=== PATIENT | male | born 1950 | race Hispanic/Latino ===

== ENCOUNTER 2022-01-13 05:52 | Observation (INO) | payer MEDICARE ==
[2022-01-11 10:13] LABS: BASOPHILS % 0.7 % (0.0-1.0); EOSINOPHILS # (AUTO) 0.5 (0.0-0.4); EOSINOPHILS % 8.2 % (0.0-6.0); HEMATOCRIT 41.7 % (38.2-49.6); HEMOGLOBIN 14.1 g/dL (14.0-18.0); LYMPHOCYTES # (AUTO) 0.9 (1.0-3.2); LYMPHOCYTES % 15.5 % (18.0-39.1); MEAN CORPUSCULAR HEMOGLOBIN 31.3 pg (28-32); MEAN CORPUSCULAR HGB CONC 33.8 g/dL (31-35); MEAN CORPUSCULAR VOLUME 92.5 fL (81-99); MONOCYTES # (AUTO) 0.6 (0.2-0.8); MONOCYTES % 10.5 % (4.4-11.3); NEUTROPHILS # (AUTO) 3.6 (2.1-6.9); NEUTROPHILS % 64.9 % (38.7-80.0); PLATELET COUNT 255 x10e3/uL (140-360); RED BLOOD COUNT 4.51 x10e6/uL (4.3-5.7); RED CELL DISTRIBUTION WIDTH 14.9 % (11.7-14.4)
[2022-01-11 10:34] LABS: INR 0.92; PARTIAL THROMBOPLASTIN TIME 30.8 seconds (23.8-35.5); PROTHROMBIN TIME 13.2 seconds (11.9-14.5)
[2022-01-11 10:39] LABS: ANION GAP 10.8 mmol/L (8-16); CALCIUM 8.9 mg/dL (8.4-10.2); CREATININE, SERUM 0.8 mg/dL (0.72-1.25); POTASSIUM 3.8 mmol/L (3.5-5.1)
[~2022-01-13] VITALS: Ht 180.3 cm; Wt 88.5 kg
[~2022-01-13 05:52] MED LIST: AMLODIPINE BESYL5 MG PO; ASPIRIN81 MG PO; FLOMAX0.4 MG PO; LIPITOR10 MG PO; LOSARTAN-HCTZ1 EAC1 PO; METOPROLOL SUCC50 MG PO; OMEGA 3 FISH O1 EACH PO; OSTEO BI-FLEX1 EAC2 PO; TADALAFIL5 MG PO; TUMERIC PO; ULTRAM 50MG50 MG PO; VITAMIN B COMP1 EACH PO; VITAMIN C1000 MG PO
[2022-01-13] MEDS ORDERED: Vancomycin IV 1 GM VIAL ONE (06:36)
[2022-01-13] MEDS ORDERED: THROMBIN FOR SOLN 5,000 UNIT VIAL ONE (06:36)
[2022-01-13] MEDS ORDERED: LIDOCAINE 2% /EPINEPHRINE 20 ML SDV INJ ONE (07:08)
[2022-01-13] MEDS: LACTATED RINGER'S 1,000 ML IV SCH ×2 (09:30→17:43)
[2022-01-13] MEDS ORDERED: ZOLPIDEM TARTRATE 5 MG TAB PO PRN (09:30)
[2022-01-13] MEDS ORDERED: ACETAMINOPHEN 325 MG TAB PO PRN (09:30)
[2022-01-13] MEDS ORDERED: MAGNESIUM/ALUMINUM/SIMETHICONE 30 ML UDC PO PRN (09:30)
[2022-01-13] MEDS ORDERED: Morphine 10mg syringe 10 MG/ML INJ IM PRN (09:30)
[2022-01-13] MEDS ORDERED: HYDROMORPHONE 2MG/ML 2 MG/ML ML IV PRN (09:30)
[2022-01-13] MEDS ORDERED: TRAMADOL HCL 50 MG TAB PO SCH (09:30)
[2022-01-13] MEDS ORDERED: HYDROCODON-ACE1 EA12 PO (09:30)
[2022-01-13] MEDS ORDERED: PROMETHAZINE HCL (IM) 25 MG/ML VIAL IM PRN (09:30)
[2022-01-13] MEDS ORDERED: ONDANSETRON HCL INJ 2MG/ML 2ML 2 MG/ML VIAL IV PRN (09:30)
[2022-01-13] MEDS ORDERED: CARISOPRODOL 350 MG TAB PO PRN (09:30)
[2022-01-13] MEDS ORDERED: ROCURONIUM BROMIDE 10 MG/ML 5ML VIAL IV ONE (13:02)
[2022-01-13] MEDS ORDERED: DEXAMETHASONE SOD PHOS INJ 4 MG/ML SDV ONE (13:02)
[2022-01-13] MEDS ORDERED: SUGAMMADEX SODIUM 200 MG/2 ML VIAL IV ONE (13:02)
[2022-01-13] MEDS ORDERED: POVIDONE IODINE 0.05% 0.05 % ML PO ONE (13:02)
[2022-01-13] MEDS ORDERED: ONDANSETRON HCL INJ 2MG/ML 2ML 2 MG/ML VIAL ONE (13:02)
[2022-01-13] MEDS ORDERED: IBUPROFEN 800 MG/200 ML BAG IV ONE (13:02)
[2022-01-13] MEDS ORDERED: LIDOCAINE HCL 2% LOCAL INJ 5 ML SDV VIAL INJ ONE (13:02)
[2022-01-13] MEDS ORDERED: ACETAMINOPHEN 1000 MG/100 ML IV ONE (13:02)
[2022-01-13] MEDS ORDERED: SEVOFLURANE INHAL SOLN 250 ML PEN BTL ONE (13:02)
[2022-01-13] MEDS ORDERED: PROPOFOL IV EMULSION 10 MG/ML 20 ML VIAL ONE (13:02)
[2022-01-13] MEDS ORDERED: EPHEDRINE SULFATE INJ 50 MG/ML VIAL ONE (13:02)
[2022-01-13] MEDS ORDERED: MIDAZOLAM HCL 2 MG/2 ML VIAL ONE (14:00)
[2022-01-13] MEDS ORDERED: FENTANYL CITRATE/PF 100MCG/2 ML INJ ONE (14:00)
[2022-01-13] MEDS: OXYCODONE/ACETAMINOPHEN 5-325 1 EACH TABLET PO PRN ×2 (15:18→19:22)
[2022-01-13 15:42] VITALS: BP 136/87
[2022-01-13 16:38] VITALS: BP 136/81
[2022-01-13 20:00] VITALS: BP 145/86
[2022-01-13 20:01] VITALS: BP 136/81
[2022-01-13] MEDS ORDERED: ATORVASTATIN 20 MG TAB PO SCH (21:00)
[2022-01-13 23:57] VITALS: BP 135/86
[2022-01-14] MEDS: LACTATED RINGER'S 1,000 ML IV SCH (02:10)
[2022-01-14 04:12] VITALS: BP 118/73
[2022-01-14] MEDS: OXYCODONE/ACETAMINOPHEN 5-325 1 EACH TABLET PO PRN (06:30)
[2022-01-14 07:54] VITALS: BP 126/76
[2022-01-14 07:57] VITALS: BP 126/76
[2022-01-14] MEDS ORDERED: METOPROLOL SUCCINATE 50 MG TAB XL PO SCH (09:00)
[2022-01-14] MEDS ORDERED: ASCORBIC ACID 500 MG TAB PO SCH (09:00)
[2022-01-14] MEDS ORDERED: HYDROCHLOROTHIAZIDE 25 MG TAB PO SCH (09:00)
[2022-01-14] MEDS ORDERED: TAMSULOSIN HCL 0.4 MG CAP PO SCH (09:00)
[2022-01-14] MEDS ORDERED: AMLODIPINE BESYLATE 5 MG TAB PO SCH (09:00)
[2022-01-14] MEDS ORDERED: LOSARTAN POTASSIUM 100 MG TAB PO SCH (09:00)
== END 2022-01-14 10:41 | disposition home or self-care (01) ==
LOC: OR 05:52 → PACU V 09:27 → MED/SURG3 14:48
PROVIDERS: ADMIT Neurological Surgery; ATTEND Neurological Surgery
DX: M48.062 Spinal stenosis, lumbar region with neurogenic claudication (principal); I10 Essential (primary) hypertension; E78.5 Hyperlipidemia, unspecified; M19.90 Unspecified osteoarthritis, unspecified site; Z01.810 Encounter for preprocedural cardiovascular examination; Z01.812 Encounter for preprocedural laboratory examination; Z01.818 Encounter for other preprocedural examination
CPT/HCPCS: 36415; 63047; 63048; 71046; 72020; 80048; 85025; 85610; 85730; 86850; 86900; 88304; 88311; 93005; G0378 ×2; J0131; J0690 ×2; J1100; J1170; J2001 ×2; J2250; J2405; J2704; J3010; J3370; J7121

== ENCOUNTER → 2023-04-20 | Outpatient (REF) | payer MEDICARE ==
[~2023-04-20] MED LIST changes: +HYDROCODON-ACE1 EA12 PO; +IOPAMIDOL 370 MG/ML 100 ML INFUS..BTL INJ ONE; +SODIUM CHLORIDE 0.9% 100 ML ONE
[2023-04-20 13:47] LABS: CREATININE, SERUM 0.88 mg/dL (0.72-1.25)
== END ==
LOC: CT 12:51
PROVIDERS: ATTEND Internal Medicine Cardiovascular Disease
DX: I71.21 Aneurysm of the ascending aorta, without rupture (principal)
CPT/HCPCS: 36415; 71275; 82565; 84520; J7050; Q9967

== ENCOUNTER → 2024-05-06 | Outpatient (REF) | payer MEDICARE ==
[2024-05-06 12:09] LABS: CREATININE, SERUM 0.85 mg/dL (0.72-1.25)
== END ==
LOC: CT 11:19
PROVIDERS: ATTEND Internal Medicine Cardiovascular Disease
DX: I25.10 Atherosclerotic heart disease of native coronary artery without angina pectoris (principal); I71.20 Thoracic aortic aneurysm, without rupture, unspecified
CPT/HCPCS: 36415; 71275; 82565; 84520; J7050; Q9967